=== PATIENT | male | born 1930 | race Hispanic/Latino ===

== ENCOUNTER 2016-12-13 15:02 | Emergency (ER) | payer MEDICARE, OTHER ==
[~2016-12-13] VITALS: Ht 172.7 cm; Wt 75.0 kg
[~2016-12-13 15:02] MED LIST: ASPI-973 PO; CEPH500C PO; LISI1TAB7 PO; SULF1TAB7 PO
[2016-12-13 15:14] VITALS: BP 181/78; PULSE 73; RESP 15; O2SAT 97
[2016-12-13] MEDS ORDERED: RIVA1.5C6 PO (15:23)
[2016-12-13] MEDS ORDERED: LISI1TAB9 PO (15:23)
[2016-12-13] MEDS ORDERED: AMLO5TAB2 PO (15:23)
[2016-12-13 16:57] VITALS: BP 184/53
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
[2016-12-13] MEDS ORDERED: AMLO10TA3 PO (17:40)
[2016-12-13 17:44] VITALS: BP 175/85
[2016-12-13 17:55] VITALS: BP 175/85; PULSE 88; RESP 16; O2SAT 98
== END 2016-12-13 17:56 | disposition home or self-care (01) ==
LOC: SED 15:02
DX: I10 Essential (primary) hypertension (principal)